=== PATIENT | female | born 1960 | race Two or more races ===

== ENCOUNTER 2024-12-14 14:07 | Emergency (ER) | payer BC, SELFPAY ==
[2024-12-14 14:44] VITALS: BP 126/69; PULSE 60; RESP 16; TEMP 37.1; O2SAT 98; BMI 23.4
--- NOTE | 2024-12-14 14:54 | PD.EDRME ---
Rapid Medical Screening Exam RME Arrival date/time: 12/14/24 14:07 This is a 64-year-old female that comes in with complaints of abdominal pain. Patient has a history of high blood pressure. I have greeted and performed a focused initial assessment of this patient. Initial appropriate labs ordered at this time. A comprehensive ED assessment and evaluation of the patient and analysis of all test and completion of medical decision making process will be conducted by additional ED provider. Chief Complaint: Abdominal Pain Time Seen by Provider: 12/14/24 14:13 Vital signs: Vital Signs Temperature 98.7 F 12/14/24 14:44 Pulse Rate 60 12/14/24 14:44 Respiratory Rate 16 12/14/24 14:44 Blood Pressure 126/69 12/14/24 14:44 Pulse Oximetry (%) 98 12/14/24 14:44 Oxygen Delivery Method Room Air 12/14/24 14:44
[2024-12-14 15:16] LABS: Basophils # (Auto) 0.1 Thou/mm3 (0.0-0.2); Basophils % (Auto) 1 % (0-2.5); Eosinophils # (Auto) 0.3 Thou/mm3 (0.0-0.5); Eosinophils % (Auto) 4 % (0-10); Hematocrit 34.8 % (36.0-46.0); Hemoglobin 11.4 g/dL (12.0-16.0); Immature Granulocytes % (Auto) 0 % (0-0); Immature Granulocytes Auto 0.01 Thou/mm3 (0.00-0.00); Lymphocytes # (Auto) 2.5 Thou/mm3 (1.0-4.8); Lymphocytes % (Auto) 32 % (10-50); Mean Corpuscular HGB Conc 32.8 g/dl (31.0-37.0); Mean Corpuscular Hemoglobin 29.6 pg (25.0-35.0); Mean Corpuscular Volume 90 fL (80-100); Monocytes # (Auto) 0.6 Thou/mm3 (0.0-0.8); Monocytes % (Auto) 7 % (0-12); Neutrophils # (Auto) 4.4 Thou/mm3 (1.8-7.7); Neutrophils % (Auto) 56 % (37-80); Nucleated Red Blood Cell % 0 /100 WBC (0); Platelet Count 310 Thou/mm3 (140-440); RDW Standard Deviation 42.1 fL (36.4-46.3); Red Blood Count 3.85 Miln/mm3 (4.00-5.20); White Blood Count 7.8 Thou/mm3 (3.6-11.0)
[2024-12-14 15:37] LABS: Alanine Aminotransferase 13 U/L (10-49); Albumin, Serum 4.3 gm/dL (3.4-4.8); Albumin/Globulin Ratio 1.9 (1.2-2.2); Alkaline Phosphatase 46 U/L (46-116); Anion Gap 9 (7-16); Aspartate Amino Transferase 17 U/L (0-34); BUN/Creatinine Ratio 42 Ratio (12-20); Bilirubin,Total 0.3 mg/dL (0.3-1.2); Blood Urea Nitrogen 38 mg/dL (9-23); Calcium 9.1 mg/dL (8.3-10.6); Calcium (Corrected) 9.1 mg/dL (8.5-10.1); Carbon Dioxide 27.4 mMol/L (20.0-31.0); Chloride 107 mMol/L (98-107); Creatinine (Component) 0.9 mg/dL (0.6-1.3); Estimated Creatinine Clearance 53.1 mL/min (>60); Globulin 2.3 gm/dL (2.3-3.5); Glucose 109 mg/dL (74-106); Lipase 35 U/L (12-53); Osmolality,Calculated 294 (275-295); Potassium 4.1 mMol/L (3.4-5.1); Sodium 143 mMol/L (136-145); Total Protein 6.6 gm/dL (5.7-8.2); eGFR > 60 See Note
[2024-12-14 15:55] LABS: Collection Type, Urine Voided
--- NOTE | 2024-12-14 16:43 | EDNOTE_ITS ---
ED Abdominal Pain RME/HPI General Chief Complaint: Abdominal Pain Stated complaint: ABD PAIN Time seen by provider: 12/14/24 14:13 Arrival date/time: 12/14/24 14:07 Limitations: no limitations RME / HPI RME / HPI narrative: 12/14/24 14:07 This is a 64-year-old female that comes in with complaints of abdominal pain. Patient has a history of high blood pressure. I have greeted and performed a focused initial assessment of this patient. Initial appropriate labs ordered at this time. A comprehensive ED assessment and evaluation of the patient and analysis of all test and completion of medical decision making process will be conducted by additional ED provider. DR. FERGUSON MAIN ED EVALUATION: 64 year old female presents to the ED for complaint of abdominal pain beginning 4 days ago. Described as throbbing sensation located most to suprapubic region without radiation, rating as moderate. Accompanied by two episodes of watery diarrhea this morning. Patient states her pain is aggravated with eating and not improved with Pepto Bismol. Denies any fevers, chills, sweats, vomiting, or urinary symptoms. Denies any history of similar symptoms or sick contacts with similar symptoms. No other associated symptoms or complaints. Related Data Previous Rx's ?Medication ?Instructions ?Recorded enalapril maleate 2.5 mg tablet 2.5 mg PO QDAY #30 tab s 06/28/18 (Vasotec) meclizine 12.5 mg tablet 12.5 mg PO BID PRN dizziness #10 06/28/18 tabs naproxen 500 mg tablet (Naprosyn) 500 mg PO BID PRN pa in #30 tabs 03/11/21 ibuprofen 800 mg tablet 800 mg PO TID PRN pain #30 t abs 08/15/21 ciprofloxacin HCl 500 mg tablet 500 mg PO BID #10 tabs 12/14/24 (Cipro) loperamide 2 mg capsule (Imodium 2 mg PO Q6H PRN loose stool #10 12/14/24 A-D) caps metronidazole 500 mg tablet 500 mg PO BID #10 tabs 11/05 Allergies Allergy/AdvReac Type Severity Reaction Status Date / Time No Known Allergies Allergy Verified 02/29/24 09:56 Review of Systems Review of Systems Systems Reviewed: All systems reviewed, normal except as documented Past Medical History Past Medical History CARDIAC: Positive Hypertension; Negative Congestive Heart Failure RESPIRATORY: Negative Chronic Obstructive Pulmonary Disease (COPD) GENITOURINARY: Negative Renal Disease ENDOCRINE: Negative Diabetes Mellitus Type 1 or Diabetes Mellitus Type 2 Social History SMOKING STATUS: Never smoker ED Exam General Limitations: Present no limitations General appearance: Present alert and in no apparent distress Head Head exam: Present atraumatic, normocephalic and normal inspection Eye Eye exam: Present normal appearance, PERRL and EOMI ENT ENT exam: Present normal exam, normal oropharynx and mucous membranes moist Neck Neck exam: Present normal inspection, full ROM and trachea midline Chest Chest inspection: Present normal inspection and symmetric chest wall rise Respiratory Respiratory exam: Present normal lung sounds bilaterally Cardiovascular Cardiovascular exam: Present regular rate, normal rhythm and normal heart sounds Abdominal Exam Abdominal exam: Present soft and normal bowel sounds Extremities Exam Extremities exam: Present normal inspection and full ROM Back Exam Back exam: Present normal inspection and full ROM Neurological Exam Neurological exam: Present alert, oriented X3 and CN II-XII intact Psychiatric Psychiatric exam: Present normal affect and normal mood Skin Skin exam: Present warm, dry, intact and normal color Course Quality Measures none Orders Category Date Time Status Discharge Routine Discharge 12/14/24 16:46 Active CBC Stat Lab 12/14/24 15:07 Completed Comprehensive Metabolic Panel Stat Lab 12/14/24 15:07 Completed Lipase Stat Lab 12/14/24 15:07 Completed Urinalysis, C/S if Indicated Stat Lab 12/14/24 15:25 Completed Urine Culture Stat Lab 12/14/24 15:25 Received Vital Signs Vital signs: Vital Signs Temperature 98.7 F 12/14/24 14:44 Pulse Rate 60 12/14/24 14:44 Respiratory Rate 16 12/14/24 14:44 Blood Pressure 126/69 12/14/24 14:44 Pulse Oximetry (%) 98 12/14/24 14:44 Oxygen Delivery Method Room Air 12/14/24 14:44 Pulse ox is 98% on room air which is adequate. Abdominal Pain MDM MDM Narrative MDM Narrative:: Caitlin Watson am scribing for and in the presence of Dr. Ferguson. 64 year old female presented to the ED for abdominal pain beginning 4 days ago. Differential diagnosis include: appendicitis, UTI, pancreatitis, but none of the diagnosis match the clinical picture. No indication or need for further work-up or imaging. Patient was diagnosed with gastroenteritis and discharged home with Cipro, Flagyl, Imodium. Advised to follow up with PCP for further evaluation/treatment,. Patient data External records reviewed:: [facility] previous records (I reviewed ED visit on 08/15/21 ) Clinical information provided by:: patient Social determinants that could affect healthcare access:: none Patient has the following chronic illnesses:: No chronic medical hx reported How is presenting disease/condition affected by chronic disease/condition?: no chronic disease Evaluation data The following diagnostics were reviewed and interpreted by me:: lab results Lab and/or radiology exams considered but not ordered:: None Interpretation Summary: No leukocystosis Medications / Prescriptions Medications or Prescriptions considered but not ordered:: None Medication administrations:: None Consultations Consultation(s) initiated? (list below): No Diagnosis Differential diagnosis abdominal pain: abdominal pain, calculus of kidney, diverticulitis, endometriosis, gastroenteritis, pancreatitis and other (UTI) Most likely diagnosis given after review of the tests above:: Acute gastroenteritis Admission Indicated Admission indicated?: not indicated Admission Request Was there a request for admission?: No Disposition Plan Disposition Plan: Discharge Discharge Attestation Discharge Attestation: The patient and all family members were given an opportunity to ask questions and understood the discharge instructions. Discharge instructions specifically effects, indications for sooner follow up or return to the emergency department, and the expected course of current diagnosis. Patient condition: Stable Discharge Plan Plan Patient Disposition: HOME (Self Care) Patient condition on transfer: Stable Prescriptions/Referrals Prescriptions/Med Rec: New ciprofloxacin HCl [Cipro] 500 mg tablet 500 mg PO BID Qty: 10 0RF metronidazole 500 mg tablet 500 mg PO BID Qty: 10 0RF loperamide [Imodium A-D] 2 mg capsule 2 mg PO Q6H PRN (Reason: loose stool) Qty: 10 0RF No Action enalapril maleate [Vasotec] 2.5 mg tablet 2.5 mg PO QDAY Qty: 30 0RF meclizine 12.5 mg tablet 12.5 mg PO BID PRN (Reason: dizziness) Qty: 10 0RF naproxen [Naprosyn] 500 mg tablet 500 mg PO BID PRN (Reason: pain) Qty: 30 0RF ibuprofen 800 mg tablet 800 mg PO TID PRN (Reason: pain) Qty: 30 0RF Referrals: No Primary/Family,Physician [Primary Care Provider] - In 1 week Problem List Clinical Impression: Gastroenteritis Patient/Caregiver Discharge Instructions Education Materials: ED Gastroenteritis, Noninfectious Additional Instructions: Follow up with your doctor within 2-3 days for reassessment. Return if your symptoms worsen. Print Language: Citizen Of [place] Stand Alone Forms: [facility] Award Info., Patient Portal Info Letter
[2024-12-14 16:45] LABS: Bilirubin,Urine Negative (Negative); Blood,Urine 1+ (Negative); Clarity,Urine Clear (Clear/Hazy); Color,Urine Lt-Yellow (Lt Yel-Yel); Culture Indicated,Urine Yes; Glucose, Urine Negative (Negative); Ketones,Urine Negative (Negative); Leukocyte Esterase,Urine Positive (Negative); Nitrite,Urine Negative (Negative); PH,Urine 5.5 (5.0-7.0); Protein,Urine Negative (Neg - Trace); RBC,Urine 2 /hpf (0-3); Specific Gravity,Urine 1.023 (1.001-1.035); Squamous Epithelial Cell,Urine < 1 /hpf (0-5); Urobilinogen,Urine Negative mg/dL (0.0-1.0); WBC,Urine 11 /hpf (0-5)
== END 2024-12-14 18:39 | disposition home or self-care (01) ==
PROVIDERS: Nurse Practitioner Family; Emergency Provider Emergency Medicine
DX: K52.9 Noninfective gastroenteritis and colitis, unspecified (principal)
CPT/HCPCS: 36415; 80053; 81001; 83690; 85025; 87086; 99283